=== PATIENT | female | born 1970 | race Caucasian/White ===

== ENCOUNTER → 2017-02-19 | Outpatient (CLI) | payer BC ==
[~2017-02-19] MED LIST: ALLEGRA 180MG180 MG PO; ATENOLOL; HCTZ; HCTZ 25MG TAB25 MG PO; LEVAQUIN 750MG750 M1 PO; MYWAY PO; OTEZLA PO; PREDNISONE20 MG PO; TENORMIN 5050 MG/TAB PO
== END ==
LOC: COL.RAD 09:00
DX: E04.2 Nontoxic multinodular goiter (principal)

== ENCOUNTER → 2018-01-30 | Outpatient (CLI) | payer BC | LOC: COL.RAD 09:25 | DX: E04.1 Nontoxic single thyroid nodule (principal) ==

== ENCOUNTER → 2019-11-28 | Outpatient (CLI) | payer BC | LOC: MC.RAD 09:40 | DX: Z12.31 Encounter for screening mammogram for malignant neoplasm of breast (principal) ==

== ENCOUNTER → 2020-05-18 | Outpatient (CLI) | payer BC | LOC: ZCOL.LAB 15:33 | DX: Z20.828 Contact with and (suspected) exposure to other viral communicable diseases (principal) ==

== ENCOUNTER → 2021-03-31 | Outpatient (CLI) | payer BC | LOC: MC.RAD 14:12 | DX: Z12.31 Encounter for screening mammogram for malignant neoplasm of breast (principal) ==

== ENCOUNTER → 2023-02-02 | Outpatient (CLI) | payer BC | LOC: COL.RAD 01-29 08:00 | DX: I71.20 Thoracic aortic aneurysm, without rupture, unspecified (principal) | CPT/HCPCS: Q9967 ==

== ENCOUNTER → 2023-04-04 | Outpatient (CLI) | payer BC | LOC: MC.RAD 01-15 14:15 | DX: Z12.31 Encounter for screening mammogram for malignant neoplasm of breast (principal) ==

== ENCOUNTER → 2024-04-07 | Outpatient (CLI) | payer BC | LOC: MC.RAD 01:20 | DX: Z12.31 Encounter for screening mammogram for malignant neoplasm of breast (principal) ==